=== PATIENT | male | born 2000 | race Caucasian/White ===

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

== ENCOUNTER 2020-03-08 15:20 | Outpatient (CLI) | payer OTHER, MEDICAID | END 2020-03-08 15:21 | disposition critical access hospital (66) | LOC: EMS 15:20 | PROVIDERS: ATTEND Surgery | DX: S09.90XA Unspecified injury of head, initial encounter (principal); V47.5XXA Car driver injured in collision with fixed or stationary object in traffic accident, initial encounter; Y92.410 Unspecified street and highway as the place of occurrence of the external cause | CPT/HCPCS: A0425; A0429 ==

== ENCOUNTER 2020-03-08 15:32 | Emergency (ER) | payer OTHER, MEDICAID ==
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
[2020-03-08 16:39] VITALS: BP 116/76
== END 2020-03-08 16:58 | disposition home or self-care (01) ==
LOC: EDUNIT# → ED 15:32
DX: S06.0X1A Concussion with loss of consciousness of 30 minutes or less, initial encounter (principal); S40.012A Contusion of left shoulder, initial encounter; V47.5XXA Car driver injured in collision with fixed or stationary object in traffic accident, initial encounter; W22.11XA Striking against or struck by driver side automobile airbag, initial encounter; Y92.410 Unspecified street and highway as the place of occurrence of the external cause
CPT/HCPCS: 70450; 71046; 99284

== ENCOUNTER 2020-03-13 23:43 | Emergency (ER) | payer MEDICAID ==
[2020-03-14] MEDS ORDERED: IBUPROFEN 600 MG TABLET PO STA (00:48)
[2020-03-14] MEDS ORDERED: HYDROcod/ACETAM 5/325 MG TABLET PO STA (02:52)
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
[2020-03-14 06:26] VITALS: BP 98/58
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
--- NOTE | 2020-03-14 09:13 | XRAY Report ---
PROCEDURE: Chest 2 View X-Ray INDICATIONS: left pneumothorax TECHNIQUE: 2 view(s) of the chest. COMPARISON: 03/14/2020 at 0150 hours.. FINDINGS: Surgical changes and devices: None. Lungs and pleura: Small left apical pneumothorax is stable. No pleural effusions. Lungs are clear. Mediastinum: Mediastinal contours are normal. Heart size is normal. Bones and chest wall: No suspicious bony abnormalities. Soft tissues appear unremarkable. IMPRESSION: Stable small left apical pneumothorax. Reviewed by: Marta Ruiz MD, PhD on 03/14/2020 9:12 AM PST Approved by: Marta Ruiz MD, PhD on 03/14/2020 9:12 AM [facility] Station ID: [id number]
== END 2020-03-14 06:26 | disposition home or self-care (01) ==
LOC: ED 23:43
DX: S27.0XXA Traumatic pneumothorax, initial encounter (principal); V49.9XXA Car occupant (driver) (passenger) injured in unspecified traffic accident, initial encounter; Y92.410 Unspecified street and highway as the place of occurrence of the external cause; R42 Dizziness and giddiness; F17.200 Nicotine dependence, unspecified, uncomplicated
CPT/HCPCS: 71046; 93005; 99284; 99285; A9270

== ENCOUNTER 2020-03-16 03:20 | Emergency (ER) | payer MEDICAID ==
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
[2020-03-16] MEDS ORDERED: HYDROmorphone 2 MG/ML VIAL IM STA (04:23)
[2020-03-16] MEDS ORDERED: KETOROLAC 30 MG/ML VIAL IM STA (04:23)
[2020-03-16] MEDS ORDERED: HYDROmorphone 1 MG/ML CARPUJECT IM STA (04:32)
[2020-03-16] MEDS ORDERED: HYDROmorphone 1 MG/ML CARPUJECT ONE (04:36)
[2020-03-16 04:56] VITALS: BP 119/68
--- NOTE | 2020-03-16 08:15 | XRAY Report ---
PROCEDURE: Chest 2 View X-Ray INDICATIONS: recent PTX; increased pain this evening TECHNIQUE: 2 view(s) of the chest. COMPARISON: None. FINDINGS: Surgical changes and devices: None. Lungs and pleura: Small left apical pneumothorax slightly decreased in size compared to 03/14/2020. N o pleural effusions. Lungs are clear. Mediastinum: Mediastinal contours are normal. Heart size is normal. Bones and chest wall: No suspicious bony abnormalities. Soft tissues appear unremarkable. IMPRESSION: Small left apical pneumothorax slightly decreased in size. Reviewed by: Marta Ruiz MD, PhD on 03/16/2020 8:14 AM [facility] Approved by: Marta Ruiz MD, PhD on 03/16/2020 8:14 AM [facility] Station ID: [id number]
== END 2020-03-16 04:56 | disposition home or self-care (01) ==
LOC: ED 03:20
DX: S27.0XXA Traumatic pneumothorax, initial encounter (principal); V89.2XXA Person injured in unspecified motor-vehicle accident, traffic, initial encounter; F17.200 Nicotine dependence, unspecified, uncomplicated
CPT/HCPCS: 71046; 96372; 99283; 99284; J1170

== ENCOUNTER 2020-04-29 00:07 | Emergency (ER) | payer MEDICAID ==
--- NOTE | 2020-04-29 00:12 | ED Physician Documentation ---
PD HPI NVD - Stated complaint Stated Complaint: NAUSEA, VOMITING - History obtained from History obtained from: Patient - History of Present Illness Timing - onset: Today (the past several hours. He says he was drinking alcohol, smoking excessively and had some cannibis. Started having anxiety, nausea and vomiting.) Timing - duration: Hours Timing - details: Still present Associated symptoms: Loss of appetite. No: Fever, Abdominal pain, Near syncope / syncope Contributing factors: Alcohol use (and cannibis and nicotine). No: Sick conta ct, Bad food, Travel Improved by: No: Vomiting Worsened by: Eating Similar symptoms before: Diagnosis (history of anxiety episodes. No regular vomiting in the past.) Review of Systems Constitutional: denies: Fever Nose: denies: Rhinorrhea / runny nose, Congestion Throat: denies: Sore throat Respiratory: denies: Cough GI: reports: Nausea, Vomiting. denies: Abdominal Pain, Diarrhea, Hematemesis Neurologic: reports: Generalized weakness, Confused, Headache. denies: Focal weakness, Numbness, Head injury Psychiatric: reports: Anxiety. denies: Depressed, Suicidal, Homicidal PD PAST MEDICAL HISTORY - Past Medical History Cardiovascular: None Respiratory: None Neuro: None Endocrine/Autoimmune: None GI: None : None HEENT: None Psych: Depression, ADD/ADHD Musculoskeletal: Other Derm: None - Past Surgical History Past Surgical History: No - Present Medications Home Medications: Ambulatory Orders Medication Instructions Recorded Confirmed LORazepam [Ativan] 1 mg PO BID PRN #10 tablet 04/29/20 Ondansetron Odt [Zofran] 4 mg TL Q6H PRN #10 tablet 04/29/20 Sertraline HCl [Zoloft] 30 mg PO QPM 04/29/20 04/29/20 - Allergies Allergies/Adverse Reactions: Allergies Allergy/AdvReac Type Severity Reaction Status Date / Time Penicillins Allergy Mild Rash Verified 04/29/20 00:49 Sulfa (Sulfonamide Allergy Mild Rash Verified 04/29/20 00:49 Antibiotics) - Social History Does the pt smoke?: Yes Smoking Status: Current every day smoker Does the pt drink ETOH?: No Does the pt have substance abuse?: No - Immunizations Immunizations are current?: Yes - POLST Patient has POLST: No PD ED PE NORMAL - Vitals Vital signs reviewed: Yes - General General: Alert and oriented X 3 (appears very anxious and shaky. Dry heaving initially here. Denies abd pain per se. ), Well developed/nourished, Other - HEENT HEENT: PERRL, EOMI (some nystagmus noted rotary.), Pharynx benign - Neck Neck: Supple, no meningeal sign, No adenopathy - Cardiac Cardiac: RRR, No murmur - Respiratory Respiratory: Clear bilaterally - Abdomen Abdomen: Normal bowel sounds, Soft, Non distended, No organomegaly, Other (upper abd tender without guarding nor percussion tenderness. ) - Male Male : Deferred - Rectal Rectal: Deferred - Back Back: No CVA TTP - Derm Derm: Warm and dry. No: Normal color (pale) - Extremities Extremities: Normal ROM s pain, No edema, No calf tenderness / cord - Neuro Neuro: No motor deficit, No sensory deficit, Other (shaky with some mild tremoring. ) - Psych Psych: No: Normal affect (very anxious) Results - Vitals Vitals: Vital Signs - 24 hr 04/29/20 04/29/20 04/29/20 00:10 00:51 01:26 Temperature 36.0 C L Heart Rate 97 71 64 Respiratory 20 16 16 Rate Blood Pressure 141/70 H 120/64 113/62 O2 Saturation 97 98 100 04/29/20 04/29/20 04/29/20 02:25 03:20 04:00 Temperature 36.7 C Heart Rate 66 67 78 Respiratory 15 15 17 Rate Blood Pressure 133/79 H 119/71 108/88 H O2 Saturation 100 98 99 04/29/20 04/29/20 04:37 05:26 Temperature 36.4 C L 36.4 C L Heart Rate 72 81 Respiratory 18 14 Rate Blood Pressure 126/75 101/55 L O2 Saturation 100 98 Oxygen O2 Source Room air - EKG (time done) 00:35 Rate: Rate (enter#) (83) Rhythm: NSR [place]: Normal Intervals: Prolonged QT (508, QTc 597). No: Wide QRS Ischemia: Non specific changes. No: ST elevation c/w ischemia, ST elevation c/w repol, ST depression 04:04 Rate: Rate (enter#) (80) Rhythm: NSR [place]: Normal Intervals: Normal NM. No: Prolonged QT (QT is now 375 with QTc 433.) Ischemia: Normal ST segments. No: ST elevation c/w ischemia, ST depression - Labs Labs: Laboratory Tests 04/29/20 04/29/20 04/29/20 00:30 00:30 00:30 WBC 15.8 H RBC 4.99 Hgb 15.4 Hct 45.0 MCV 90.2 MCH 30.9 MCHC 34.2 RDW 11.5 L Plt Count 321 MPV 9.3 Neut # (Auto) Not Reportable Lymph # (Auto) Not Reportable [place] # (Auto) Not Reportable Eos # (Auto) Not Reportable Baso # (Auto) Not Reportable Absolute Nucleated RBC Not Reportable Total Counted 100 Band Neuts % (Manual) 0 Abnorm Lymph % (Manual) 0 Nucleated RBC % Not Reportable Neutrophils # (Manual) 7.0 H Lymphocytes # (Manual) 7.4 H Monocytes # (Manual) 1.1 H Eosinophils # (Manual) 0.3 Basophils # (Manual) 0.0 Differential Comment MANUAL DIFFERENTIAL WBC Morphology NORMAL APPEARANCE Platelet Estimate NORMAL (130-450,000) Platelet Morphology NORMAL APPEARANCE RBC Morph Micro Appear NORMAL APPEARANCE Sodium 138 Potassium 2.3 L* Chloride 101 Carbon Dioxide 25 Anion Gap 12.0 BUN 9 Creatinine 0.9 Estimated GFR (MDRD) 109 Glucose 192 H Calcium 8.9 Magnesium Total Bilirubin 0.5 AST 19 ALT 12 Alkaline Phosphatase 112 Total Creatine Kinase Total Protein 7.7 Albumin 4.7 Globulin 3.0 Albumin/Globulin Ratio 1.6 Lipase 25 TSH 2.29 Urine Color Urine Clarity Urine pH Ur Specific [place] Urine Protein Urine Glucose (UA) Urine Ketones Urine Occult Blood Urine Nitrite Urine Bilirubin Urine Urobilinogen Ur Leukocyte Esterase Ur Microscopic Review Urine Culture Comments Salicylates < 6.0 Urine Opiates Screen Ur Oxycodone Screen Urine Methadone Screen Ur Propoxyphene Screen Acetaminophen < 10 L Ur Barbiturates Screen Ur Tricyclics Screen Ur Phencyclidine Scrn Ur Amphetamine Screen U Methamphetamines Scrn U Benzodiazepines Scrn Urine Cocaine Screen U Cannabinoids Screen Ethyl Alcohol 7.2 04/29/20 04/29/20 04/29/20 00:30 00:30 02:15 WBC RBC Hgb Hct MCV MCH MCHC RDW Plt Count MPV Neut # (Auto) Lymph # (Auto) [place] # (Auto) Eos # (Auto) Baso # (Auto) Absolute Nucleated RBC Total Counted Band Neuts % (Manual) Abnorm Lymph % (Manual) Nucleated RBC % Neutrophils # (Manual) Lymphocytes # (Manual) Monocytes # (Manual) Eosinophils # (Manual) Basophils # (Manual) Differential Comment WBC Morphology Platelet Estimate Platelet Morphology RBC Morph Micro Appear Sodium Potassium Chloride Carbon Dioxide Anion Gap BUN Creatinine Estimated GFR (MDRD) Glucose Calcium Magnesium 2.3 Total Bilirubin AST ALT Alkaline Phosphatase Total Creatine Kinase 112 Total Protein Albumin Globulin Albumin/Globulin Ratio Lipase TSH Urine Color YELLOW Urine Clarity CLEAR Urine pH 6.0 Ur Specific [place] 1.015 Urine Protein NEGATIVE Urine Glucose (UA) NEGATIVE Urine Ketones NEGATIVE Urine Occult Blood NEGATIVE Urine Nitrite NEGATIVE Urine Bilirubin NEGATIVE Urine Urobilinogen 0.2 (NORMAL) Ur Leukocyte Esterase NEGATIVE Ur Microscopic Review NOT INDICATED Urine Culture Comments NOT INDICATED Salicylates Urine Opiates Screen NEGATIVE Ur Oxycodone Screen NEGATIVE Urine Methadone Screen NEGATIVE Ur Propoxyphene Screen NEGATIVE Acetaminophen Ur Barbiturates Screen NEGATIVE Ur Tricyclics Screen NEGATIVE Ur Phencyclidine Scrn NEGATIVE Ur Amphetamine Screen NEGATIVE U Methamphetamines Scrn NEGATIVE U Benzodiazepines Scrn NEGATIVE Urine Cocaine Screen NEGATIVE U Cannabinoids Screen POSITIVE H Ethyl Alcohol 04/29/20 03:00 WBC RBC Hgb Hct MCV MCH MCHC RDW Plt Count MPV Neut # (Auto) Lymph # (Auto) [place] # (Auto) Eos # (Auto) Baso # (Auto) Absolute Nucleated RBC Total Counted Band Neuts % (Manual) Abnorm Lymph % (Manual) Nucleated RBC % Neutrophils # (Manual) Lymphocytes # (Manual) Monocytes # (Manual) Eosinophils # (Manual) Basophils # (Manual) Differential Comment WBC Morphology Platelet Estimate Platelet Morphology RBC Morph Micro Appear Sodium 139 Potassium 4.2 Chloride 105 Carbon Dioxide 24 Anion Gap 10.0 BUN < 5 L Creatinine 0.7 Estimated GFR (MDRD) 145 Glucose 119 H Calcium 8.6 Magnesium Total Bilirubin AST ALT Alkaline Phosphatase Total Creatine Kinase Total Protein Albumin Globulin Albumin/Globulin Ratio Lipase TSH Urine Color Urine Clarity Urine pH Ur Specific [place] Urine Protein Urine Glucose (UA) Urine Ketones Urine Occult Blood Urine Nitrite Urine Bilirubin Urine Urobilinogen Ur Leukocyte Esterase Ur Microscopic Review Urine Culture Comments Salicylates Urine Opiates Screen Ur Oxycodone Screen Urine Methadone Screen Ur Propoxyphene Screen Acetaminophen Ur Barbiturates Screen Ur Tricyclics Screen Ur Phencyclidine Scrn Ur Amphetamine Screen U Methamphetamines Scrn U Benzodiazepines Scrn Urine Cocaine Screen U Cannabinoids Screen Ethyl Alcohol PD MEDICAL DECISION MAKING - ED course Complexity details: reviewed results, re-evaluated patient (He is much less anxious. He is not having any tremoring or shakiness. He denies any nausea. He is able to drink fluids. His electrolytes have been doing proved on review draw. His vitals remain normal. His EKG is improved with normal QT at this time. He feels calm enough to try heading home.), considered differential (presume mix of alcohol, nicotine and cannibis has him anxious/ vomiting. Can give IV fluids and meds to help calm. He is cooperative here. Treat nausea and anxiety and benzo to offset the nicotine jittery. ), d/w patient Departure - Departure Disposition: Home, Self Care Clinical Impression: Drug side effects, Anxiety, Hypokalemia Nausea and vomiting Qualifiers: Vomiting type: unspecified Vomiting Intractability: intractable Qualified Code(s): R11.2 - Nausea with vomiting, unspecified Condition: Stable Record reviewed to determine appropriate education?: Yes Follow-Up: [facility] [Provider Group] [facility] [Provider Group] Prescriptions: LORazepam [Ativan] 1 mg PO BID PRN #10 tablet PRN Reason: Anxiety Ondansetron Odt [Zofran] 4 mg TL Q6H PRN #10 tablet PRN Reason: Nausea / Vomiting Comments: Stay well-hydrated. Use lorazepam twice daily if needed for anxiety or sh akiness over the next several days. Use it just if needed. O dancer Pedro if needed for nausea and vomiting. Avoid cannabis, cigarette smoking and alcohol. Eat well. Regular exercise. Follow-up with a local primary care, call for appointment. Consider prescriptions through primary care for longer term anxiety and depression treatment. Discharge Date/Time: 04/29/20 05:30
[2020-04-29] MEDS ORDERED: SODIUM CHLORIDE 0.9% 1,000 ML IV STA ×3 (00:22→01:55)
[2020-04-29] MEDS ORDERED: ONDANSETRON 4 MG/2 ML VIAL IVP STA (00:22)
[2020-04-29] MEDS ORDERED: LORazepam 2 MG/ML VIAL IVP STA ×2 (00:23→01:56)
[2020-04-29 00:44] LABS: BASOPHILS % (AUTO) 0.5 %; HGB - HEMOGLOBIN 15.4 g/dL (14.0-18.0); LYMPHOCYTES % (AUTO) 48.5 %; MEAN CORPUSCULAR HEMOGLOBIN 30.9 pg (27.0-31.0); MEAN CORPUSCULAR HGB CONC 34.2 g/dL (32.0-36.0); MEAN CORPUSCULAR VOLUME 90.2 fL (80.0-94.0); MEAN PLATELET VOLUME 9.3 fL (7.4-11.4); MONOCYTES % (AUTO) 8.1 %; NEUTROPHILS % (AUTO) 39.1 %; PLT - PLATELET COUNT 321 10^3/uL (130-450); RED BLOOD COUNT 4.99 10^6/uL (4.70-6.10); RED CELL DISTRIBUTION WIDTH 11.5 % (12.0-15.0); WHITE BLOOD COUNT 15.8 x10^3/uL (4.8-10.8)
[2020-04-29 00:46] LABS: ABNORMAL LYMPHS % (MANUAL) 0 %; BAND NEUTROPHILS % (MANUAL) 0 %
[2020-04-29 01:05] LABS: ACETAMINOPHEN < 10 ug/mL (10-30); ALBUMIN 4.7 g/dL (3.2-5.5); ALBUMIN/GLOBULIN RATIO 1.6 (1.0-2.2); ALKALINE PHOSPHATASE 112 IU/L (42-121); ALT ALANINE AMINOTRANSFERASE 12 IU/L (10-60); AST ASPARTATE AMINOTRANSFERASE 19 IU/L (10-42); BILIRUBIN,TOTAL 0.5 mg/dL (0.2-1.0); BUN - BLOOD UREA NITROGEN 9 mg/dL (6-20); CALCIUM 8.9 mg/dL (8.5-10.3); CARBON DIOXIDE - CO2 25 mmol/L (21-32); CHLORIDE 101 mmol/L (101-111); CREATININE 0.9 mg/dL (0.6-1.2); GLUCOSE 192 mg/dL (70-100); LIPASE 25 U/L (22-51); SALICYLATE < 6.0 mg/dL; SODIUM 138 mmol/L (135-145); TOTAL PROTEIN 7.7 g/dL (6.7-8.2)
[2020-04-29] MEDS ORDERED: POTASSIUM CHLOR 10 MEQ/100 ML 10 MEQ/100 ML BAG IV ONE ×2 (01:08→01:37)
[2020-04-29] MEDS ORDERED: FAMOTIDINE 20 MG/2 ML VIAL IVP STA (01:12)
[2020-04-29 01:14] LABS: DIFFERENTIAL COMMENT MANUAL DIFFERENTIAL; EOSINOPHILS # (MANUAL) 0.3 10^3/uL (0-0.7); LYMPHOCYTES # (MANUAL) 7.4 10^3/uL (1.5-3.5); LYMPHOCYTES % (MANUAL) 47 %; MONOCYTES # (MANUAL) 1.1 10^3/uL (0.0-1.0); PLATELET ESTIMATE, MANUAL NORMAL (130-450,000) (NORMAL); PLATELET MORPHOLOGY NORMAL APPEARANCE (NORMAL); RBC MORPHOLOGY (MULTIPLE) NORMAL APPEARANCE (NORMAL)
[2020-04-29] MEDS ORDERED: LACTATED RINGERS 1,000 ML IV STA (01:36)
[2020-04-29 02:43] LABS: MUDS CUTOFF CONCENTRATIONS CUTOFF CONC BELOW:
[2020-04-29 02:48] LABS: BILIRUBIN,URINE NEGATIVE (NEGATIVE); GLUCOSE, URINE (UA) NEGATIVE (NEGATIVE); KETONES,URINE (UA) NEGATIVE (NEGATIVE); LEUKOCYTE ESTERASE, URINE NEGATIVE (NEGATIVE); NITRITE,URINE NEGATIVE (NEGATIVE); OCCULT BLOOD,URINE NEGATIVE (NEGATIVE); PROTEIN,URINE NEGATIVE (NEGATIVE); UROBILINOGEN,URINE 0.2 (NORMAL) E.U./dL (NORMAL)
[2020-04-29 02:49] LABS: CLARITY,URINE CLEAR (CLEAR)
[2020-04-29 02:59] LABS: AMPHETAMINE SCREEN,URINE NEGATIVE (NEGATIVE); BENZODIAZEPINES SCREEN, URINE NEGATIVE (NEGATIVE); COCAINE SCREEN URINE NEGATIVE (NEGATIVE); METHADONE SCREEN, URINE NEGATIVE (NEGATIVE); METHAMPHETAMINES SCREEN, URINE NEGATIVE (NEGATIVE); OPIATE SCREEN, URINE NEGATIVE (NEGATIVE); OXYCODONE SCREEN, URINE NEGATIVE (NEGATIVE); PROPOXYPHENE SCREEN, URINE NEGATIVE (NEGATIVE); TRICYCLIC ANTIDEPRESSANT,URINE NEGATIVE (NEGATIVE)
[2020-04-29 03:44] LABS: BUN - BLOOD UREA NITROGEN < 5 mg/dL (6-20); CALCIUM 8.6 mg/dL (8.5-10.3); CARBON DIOXIDE - CO2 24 mmol/L (21-32); CHLORIDE 105 mmol/L (101-111); CREATININE 0.7 mg/dL (0.6-1.2); GLUCOSE 119 mg/dL (70-100); SODIUM 139 mmol/L (135-145)
[2020-04-29 05:28] VITALS: BP 101/55
== END 2020-04-29 05:30 | disposition home or self-care (01) ==
LOC: ED 00:07
DX: R11.2 Nausea with vomiting, unspecified (principal); F41.9 Anxiety disorder, unspecified; T50.995A Adverse effect of other drugs, medicaments and biological substances, initial encounter; E87.6 Hypokalemia; I45.81 Long QT syndrome
CPT/HCPCS: 36415; 80048; 80053; 80306; 80307; 80320; 80329; 81003; 82550; 83690; 83735; 84443; 85025; 93005; 96361; 96365; 96366; 96375; 96376; 99284; J2060; J7120; 81001; 87086

== ENCOUNTER 2022-03-13 07:26 | Outpatient (CLI) | payer MEDICAID | END 2022-03-13 07:27 | disposition critical access hospital (66) | LOC: EMS 07:26 | DX: Z03.89 Encounter for observation for other suspected diseases and conditions ruled out (principal) | CPT/HCPCS: A0425; A0429 ==

== ENCOUNTER 2022-03-13 07:47 | Emergency (ER) | payer MEDICAID ==
[2022-03-13] MEDS ORDERED: KETOROLAC 15 MG/ML VIAL IVP STA (07:59)
[2022-03-13] MEDS ORDERED: SODIUM CHLORIDE 0.9% 1,000 ML IV STA ×2 (07:59→11:38)
[2022-03-13] MEDS ORDERED: BACITRACIN ZINC OINT 1 PACKET TOP STA (08:00)
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
[2022-03-13 08:14] LABS: BASOPHILS % (AUTO) 0.2 %; HCT - HEMATOCRIT 43.4 % (42.0-52.0); LYMPHOCYTES # (AUTO) 1.2 10^3/uL (1.5-3.5); LYMPHOCYTES % (AUTO) 6.5 %; MEAN CORPUSCULAR HEMOGLOBIN 29.9 pg (27.0-31.0); MEAN CORPUSCULAR HGB CONC 34.6 g/dL (32.0-36.0); MEAN CORPUSCULAR VOLUME 86.6 fL (80.0-94.0); MEAN PLATELET VOLUME 8.5 fL (7.4-11.4); MONOCYTES # (AUTO) 1.5 10^3/uL (0.0-1.0); MONOCYTES % (AUTO) 8.1 %; NEUTROPHILS # (AUTO) 15.1 10^3/uL (1.5-6.6); NEUTROPHILS % (AUTO) 84.9 %; PLT - PLATELET COUNT 284 10^3/uL (130-450); RED BLOOD COUNT 5.01 10^6/uL (4.70-6.10); RED CELL DISTRIBUTION WIDTH 11.8 % (12.0-15.0); WHITE BLOOD COUNT 17.8 x10^3/uL (4.8-10.8)
[2022-03-13 08:37] LABS: ALBUMIN 4.8 g/dL (3.2-5.5); ALBUMIN/GLOBULIN RATIO 1.8 (1.0-2.2); ALKALINE PHOSPHATASE 85 IU/L (42-121); ALT ALANINE AMINOTRANSFERASE 21 IU/L (10-60); AST ASPARTATE AMINOTRANSFERASE 58 IU/L (10-42); BILIRUBIN,TOTAL 0.9 mg/dL (0.2-1.0); BUN - BLOOD UREA NITROGEN 14 mg/dL (6-20); CALCIUM 9.1 mg/dL (8.5-10.3); CARBON DIOXIDE - CO2 24 mmol/L (21-32); CHLORIDE 102 mmol/L (101-111); CREATININE 0.7 mg/dL (0.6-1.2); ETOH - ETHANOL < 5.0 mg/dL; GFR - MDRD 142 (>89); GLUCOSE 111 mg/dL (70-100); LIPASE 26 U/L (22-51); MAGNESIUM 2.3 mg/dL (1.7-2.8); POTASSIUM 3.8 mmol/L (3.5-5.0); SODIUM 136 mmol/L (135-145); TOTAL PROTEIN 7.5 g/dL (6.7-8.2)
[2022-03-13 08:38] LABS: CK- CREATINE KINASE 1882 IU/L (22-269)
[2022-03-13 09:25] LABS: B. PARAPERTUSSIS- RESP PCR PAN NOT DETECTED; B. PERTUSSIS- RESP PCR PANEL NOT DETECTED; C. PNEUMONIAE- RESP PCR PANEL NOT DETECTED; CORONAVIRUS 229E-RESP PCR NOT DETECTED; CORONAVIRUS HKU1-RESP PCR NOT DETECTED; CORONAVIRUS NL63-RESP PCR NOT DETECTED; CORONAVIRUS OC43-RESP PCR NOT DETECTED; HUMAN METAPNEUMOVIRUS NOT DETECTED; INFLUENZA A- RESP PCR PANEL NOT DETECTED; INFLUENZA B - RESP PCR PANEL NOT DETECTED; M. PNEUMONIAE- RESP PCR PANEL NOT DETECTED; PARAINFLUENZA VIRUS 1 NOT DETECTED; PARAINFLUENZA VIRUS 2 NOT DETECTED; PARAINFLUENZA VIRUS 3 NOT DETECTED; PARAINFLUENZA VIRUS 4 NOT DETECTED; RHINOVIRUS/ENTEROVIRUS NOT DETECTED; RSV- RESP PCR PANEL NOT DETECTED; SARS-CoV-2 -RESP PCR PANEL NOT DETECTED
[2022-03-13 12:06] VITALS: BP 105/52
[2022-03-13] MEDS ORDERED: ACETAMINOPHEN 325 MG TABLET PO STA (13:06)
== END 2022-03-13 15:06 | disposition home or self-care (01) ==
LOC: EDBD → EDUNIT# → ED 07:47
DX: T69.022A Immersion foot, left foot, initial encounter (principal); T69.021A Immersion foot, right foot, initial encounter; X31.XXXA Exposure to excessive natural cold, initial encounter; R11.0 Nausea; R53.1 Weakness; Z59.02 Unsheltered homelessness; F17.200 Nicotine dependence, unspecified, uncomplicated
CPT/HCPCS: 36415; 80053; 80320; 82550; 83690; 83735; 85025; 87633; 96361; 96374; 99282; 99284; A9270

== ENCOUNTER 2022-06-12 16:31 | Emergency (ER) | payer OTHER, MEDICAID ==
[2022-06-12 16:34] VITALS: BP 112/71
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
== END 2022-06-12 16:47 | disposition home or self-care (01) ==
LOC: ED 16:31
DX: S60.311A Abrasion of right thumb, initial encounter (principal); X58.XXXA Exposure to other specified factors, initial encounter; Y92.9 Unspecified place or not applicable; F17.200 Nicotine dependence, unspecified, uncomplicated
CPT/HCPCS: 99281; 99282

== ENCOUNTER 2022-08-14 14:06 | Outpatient (CLI) | payer OTHER ==
[2022-08-14 14:20] LABS: BASOPHILS % (AUTO) 0.4 %; EOSINOPHILS # (AUTO) 0.3 10^3/uL (0.0-0.7); HCT - HEMATOCRIT 40.4 % (42.0-52.0); HGB - HEMOGLOBIN 13.8 g/dL (14.0-18.0); LYMPHOCYTES # (AUTO) 2.3 10^3/uL (1.5-3.5); LYMPHOCYTES % (AUTO) 30.2 %; MEAN CORPUSCULAR HEMOGLOBIN 30.7 pg (27.0-31.0); MEAN CORPUSCULAR HGB CONC 34.2 g/dL (32.0-36.0); MEAN CORPUSCULAR VOLUME 89.8 fL (80.0-94.0); MEAN PLATELET VOLUME 9.5 fL (7.4-11.4); MONOCYTES # (AUTO) 0.8 10^3/uL (0.0-1.0); MONOCYTES % (AUTO) 11.1 %; NEUTROPHILS # (AUTO) 4.1 10^3/uL (1.5-6.6); NEUTROPHILS % (AUTO) 53.9 %; PLT - PLATELET COUNT 250 10^3/uL (130-450); RED CELL DISTRIBUTION WIDTH 12.5 % (12.0-15.0); WHITE BLOOD COUNT 7.6 x10^3/uL (4.8-10.8)
[2022-08-14 14:51] LABS: ALBUMIN 3.9 g/dL (3.2-5.5); ALBUMIN/GLOBULIN RATIO 1.6 (1.0-2.2); BILIRUBIN,TOTAL 0.4 mg/dL (0.2-1.0); CALCIUM 9.2 mg/dL (8.5-10.3); CREATININE 0.7 mg/dL (0.6-1.2); TOTAL PROTEIN 6.4 g/dL (6.7-8.2)
== END 2022-08-14 14:07 | disposition home or self-care (01) ==
LOC: LAB.R 14:06
PROVIDERS: ATTEND Registered Nurse
DX: R79.9 Abnormal finding of blood chemistry, unspecified (principal); R94.6 Abnormal results of thyroid function studies; Z13.228 Encounter for screening for other metabolic disorders
CPT/HCPCS: 80053; 84443; 85025

== ENCOUNTER 2022-09-09 08:00 | Outpatient (CLI) | payer OTHER ==
[2022-09-09 15:03] LABS: BASOPHILS % (AUTO) 0.5 %; EOSINOPHILS # (AUTO) 0.2 10^3/uL (0.0-0.7); EOSINOPHILS % (AUTO) 4.3 %; HCT - HEMATOCRIT 40.6 % (42.0-52.0); HGB - HEMOGLOBIN 13.2 g/dL (14.0-18.0); LYMPHOCYTES # (AUTO) 1.5 10^3/uL (1.5-3.5); LYMPHOCYTES % (AUTO) 34.9 %; MEAN CORPUSCULAR HEMOGLOBIN 30.1 pg (27.0-31.0); MEAN CORPUSCULAR HGB CONC 32.5 g/dL (32.0-36.0); MEAN CORPUSCULAR VOLUME 92.5 fL (80.0-94.0); MEAN PLATELET VOLUME 9.9 fL (7.4-11.4); MONOCYTES # (AUTO) 0.6 10^3/uL (0.0-1.0); MONOCYTES % (AUTO) 13.7 %; NEUTROPHILS # (AUTO) 1.9 10^3/uL (1.5-6.6); NEUTROPHILS % (AUTO) 46.6 %; PLT - PLATELET COUNT 197 10^3/uL (130-450); RED BLOOD COUNT 4.39 10^6/uL (4.70-6.10); RED CELL DISTRIBUTION WIDTH 12.2 % (12.0-15.0); WHITE BLOOD COUNT 4.2 x10^3/uL (4.8-10.8)
[2022-09-09 15:11] LABS: ALBUMIN 3.5 g/dL (3.2-5.5); ALBUMIN/GLOBULIN RATIO 1.5 (1.0-2.2); BILIRUBIN,TOTAL 0.6 mg/dL (0.2-1.0); CALCIUM 8.8 mg/dL (8.5-10.3); CREATININE 0.8 mg/dL (0.6-1.2); POTASSIUM 4.6 mmol/L (3.5-5.0); TOTAL PROTEIN 5.9 g/dL (6.7-8.2)
== END 2022-09-09 23:59 | disposition home or self-care (01) ==
LOC: LAB.R 08:00
PROVIDERS: ATTEND Registered Nurse
DX: R68.89 Other general symptoms and signs (principal); Z13.228 Encounter for screening for other metabolic disorders
CPT/HCPCS: 80053; 85025

== ENCOUNTER 2023-06-25 00:29 | Outpatient (CLI) | payer MEDICAID | END 2023-06-25 00:30 | disposition critical access hospital (66) | LOC: EMS 00:29 | DX: T68.XXXA Hypothermia, initial encounter (principal); X31.XXXA Exposure to excessive natural cold, initial encounter; R11.2 Nausea with vomiting, unspecified; R19.7 Diarrhea, unspecified; R63.8 Other symptoms and signs concerning food and fluid intake; M54.9 Dorsalgia, unspecified; Z59.02 Unsheltered homelessness | CPT/HCPCS: A0425; A0427; A0999 ==

== ENCOUNTER 2023-06-25 00:49 | Emergency (ER) | payer MEDICAID, OTHER ==
[2023-06-25 01:04] VITALS: O2SAT 100
[2023-06-25] MEDS: SODIUM CHLORIDE 0.9% 1,000 ML IV STA (01:05)
[2023-06-25 01:12] LABS: BASOPHILS % (AUTO) 0.1 %; HGB - HEMOGLOBIN 14.7 g/dL (14.0-18.0); LYMPHOCYTES # (AUTO) 1.6 10^3/uL (1.5-3.5); LYMPHOCYTES % (AUTO) 11.4 %; MEAN CORPUSCULAR HEMOGLOBIN 28.8 pg (27.0-31.0); MEAN CORPUSCULAR HGB CONC 33.4 g/dL (32.0-36.0); MEAN CORPUSCULAR VOLUME 86.3 fL (80.0-94.0); MEAN PLATELET VOLUME 9.2 fL (7.4-11.4); MONOCYTES # (AUTO) 0.8 10^3/uL (0.0-1.0); MONOCYTES % (AUTO) 6.2 %; NEUTROPHILS # (AUTO) 11.2 10^3/uL (1.5-6.6); NEUTROPHILS % (AUTO) 81.9 %; PLT - PLATELET COUNT 326 10^3/uL (130-450); RED CELL DISTRIBUTION WIDTH 12.5 % (12.0-15.0); WHITE BLOOD COUNT 13.6 x10^3/uL (4.8-10.8)
[2023-06-25 01:38] LABS: ACETAMINOPHEN 0.2 ug/mL; ALBUMIN 4.5 g/dL (3.2-5.5); ALBUMIN/GLOBULIN RATIO 1.7 (1.0-2.2); ALKALINE PHOSPHATASE 81 IU/L (42-121); ALT ALANINE AMINOTRANSFERASE 19 IU/L (10-60); AST ASPARTATE AMINOTRANSFERASE 31 IU/L (10-42); BILIRUBIN,TOTAL 1.1 mg/dL (0.2-1.0); BUN - BLOOD UREA NITROGEN 23 mg/dL (6-20); CALCIUM 9.3 mg/dL (8.5-10.3); CARBON DIOXIDE - CO2 26 mmol/L (21-32); CHLORIDE 103 mmol/L (101-111); CK- CREATINE KINASE 543 IU/L (30-223); CREATININE 0.7 mg/dL (0.6-1.3); ETOH - ETHANOL < 10.0 mg/dL; GFR - MDRD 140 (>89); GLUCOSE 104 mg/dL (74-104); POTASSIUM 3.8 mmol/L (3.5-4.5); SODIUM 141 mmol/L (135-145); TOTAL PROTEIN 7.1 g/dL (6.4-8.9)
[2023-06-25 01:42] LABS: LIPASE < 10 U/L (11-82); SALICYLATE < 1.5 mg/dL
[2023-06-25] MEDS: ONDANSETRON 4 MG/2 ML VIAL IVP STA (01:42)
--- NOTE | 2023-06-25 02:51 | ED Physician Documentation ---
History of Present Illness - Stated complaint Stated Complaint: ETOH/WITHDRAWALS - Chief complaint Chief Complaint: General - History obtained from History obtained from: Patient, EMS - Additonal information Additional information: 23-year-old male presents by EMS from [facility] stabilization facility for nausea and vomiting. Patient apparently had been in the [facility] for 3 days on amphetamines and opiates. He went to the stabilization facility for treatment for amphetamines and opiates, but was turned away. 911 was then called for nausea and vomiting. On arrival patient was awake, alert, blanket over his head, mumbled yes or no to initial questions but then turned away and did not want to participate in rest of interview. Of note, EMS report includes alcohol withdrawal in report, patient denies alcohol use. Review of Systems Unable to obtain: Uncooperative GI: reports: Nausea, Vomiting PD PAST MEDICAL HISTORY - Past Medical History Past Medical History: No Cardiovascular: None Respiratory: None Neuro: None Endocrine/Autoimmune: None GI: None : None HEENT: None Psych: Depression, ADD/ADHD Musculoskeletal: Other Derm: None - Past Surgical History Past Surgical History: No - Present Medications Home Medications: Ambulatory Orders Medication Instructions Recorded Confirmed Vits A and D/White Pet/Lanolin [A 1 applic TP BID #42.5 gm 03/13/22 and D Ointment] cephALEXin [Keflex] 500 mg PO Q6H 3 Days #12 cap 02/03/23 - Allergies Allergies/Adverse Reactions: Allergies Allergy/AdvReac Type Severity Reaction Status Date / Time Penicillins Allergy Mild Rash Verified 02/03/23 00:57 Sulfa (Sulfonamide Allergy Mild Rash Verified 02/03/23 00:57 Antibiotics) - Social History Does the pt smoke?: Yes Smoking Status: Current every day smoker Does the pt drink ETOH?: No Does the pt have substance abuse?: Yes Substance Use and Type: Meth, Heroin - Immunizations Immunizations are current?: Yes Immunizations: Other immun not current - POLST Patient has POLST: No PD ED PE NORMAL - Vitals Vital signs reviewed: Yes - General General: Alert and oriented X 3, No acute distress, Other (disheveled, hygiene poor) - Cardiac Cardiac: RRR, Strong equal pulses - Respiratory Respiratory: No respiratory distress - Abdomen Abdomen: Soft, Non tender, Non distended - Derm Derm: Normal color, Warm and dry, No rash - Neuro Neuro: Alert and oriented X 3, 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, No motor deficit, Normal speech Results - Vitals Vitals: Vital Signs - 24 hr 06/25/23 06/25/23 06/25/23 00:52 00:55 03:01 Temperature 36.6 C 36.6 C Heart Rate 55 L 55 L 51 L Respiratory 16 16 16 Rate Blood Pressure 128/81 H 128/81 H 102/57 L O2 Saturation 100 100 100 Oxygen O2 Source Room air - Labs Labs: Laboratory Tests 06/25/23 06/25/23 01:06 01:06 WBC 13.6 H RBC 5.10 Hgb 14.7 Hct 44.0 MCV 86.3 MCH 28.8 MCHC 33.4 RDW 12.5 Plt Count 326 MPV 9.2 Neut # (Auto) 11.2 H Lymph # (Auto) 1.6 [place] # (Auto) 0.8 Eos # (Auto) 0.0 Baso # (Auto) 0.0 Absolute Nucleated RBC 0.00 Nucleated RBC % 0.0 Sodium 141 Potassium 3.8 Chloride 103 Carbon Dioxide 26 Anion Gap 12.0 BUN 23 H Creatinine 0.7 Estimated GFR (MDRD) 140 Glucose 104 Calcium 9.3 Total Bilirubin 1.1 H AST 31 ALT 19 Alkaline Phosphatase 81 Total Creatine Kinase 543 H Total Protein 7.1 Albumin 4.5 Globulin 2.6 Albumin/Globulin Ratio 1.7 Lipase < 10 L Salicylates < 1.5 Acetaminophen 0.2 Ethyl Alcohol < 10.0 PD Medical Decision Making - ED course Complexity details: reviewed old records, reviewed results, re-evaluated p atient, considered differential, d/w patient ED course: Nausea and vomiting after several days in the [facility] taking amphetamines and opiates. Patient is alert and oriented, does not currently appear to be under the influence of illicit drugs or actively withdrawing from any substances. Hemodynamically stable. Antiemetics and IV fluids ordered as well as screening laboratory work. Laboratory work is reviewed, mild elevation in CK, however kidney function is normal and levels not high enough to qualify for rhabdo. Patient vomited once immediately after arrival but has been observed for several hours without any further episodes of emesis. Provided p.o. challenge as patient stated he was "starving", however once food was brought and he turned away and refused to attempt p.o. Patient has remained hemodynamically stable throughout stay in department, no signs or symptoms of acute withdrawal from illicit drugs or other dangerous substances. Patient declined nausea prescription to be sent to her pharmacy. Discharged in stable condition. Departure - Departure Disposition: 01 Home, Self Care Clinical Impression: Amphetamine use Vomiting Qualifiers: Vomiting type: unspecified Nausea presence: unspecified Qualified Code(s): R11.10 - Vomiting, unspecified Condition: Stable Instructions: ED Nausea Vomiting Comments: [facility] [id number] [id number] Forms: PCP List
[2023-06-25 03:11] VITALS: BP 102/57
== END 2023-06-25 03:20 | disposition home or self-care (01) ==
LOC: EDUNIT# → ED 00:49
DX: F15.93 Other stimulant use, unspecified with withdrawal (principal); R11.2 Nausea with vomiting, unspecified; F17.200 Nicotine dependence, unspecified, uncomplicated
CPT/HCPCS: 36415; 80053; 80143; 80179; 82077; 82550; 83690; 85025; 96374; 99283

== ENCOUNTER 2024-01-08 07:37 | Outpatient (CLI) | payer OTHER, MEDICAID | END 2024-01-08 23:59 | disposition critical access hospital (66) | LOC: EMS 07:37 | DX: Z04.6 Encounter for general psychiatric examination, requested by authority (principal); R44.0 Auditory hallucinations; Z78.1 Physical restraint status | CPT/HCPCS: A0425; A0429 ==

== ENCOUNTER 2024-01-08 08:06 | Emergency (ER) | payer OTHER, MEDICAID ==
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
[2024-01-08 08:35] VITALS: BP 110/63; O2SAT 99
== END 2024-01-08 08:37 | disposition home or self-care (01) ==
LOC: EDUNIT# → ED 08:06
DX: F15.10 Other stimulant abuse, uncomplicated (principal); F11.20 Opioid dependence, uncomplicated; F17.200 Nicotine dependence, unspecified, uncomplicated
CPT/HCPCS: 99282; 99283